=== PATIENT | female | born 1965 | race Caucasian/White ===

== ENCOUNTER 2019-03-03 23:37 | Emergency (ER) | payer OTHER ==
[~2019-03-03] VITALS: Ht 167.6 cm; Wt 75.0 kg
[2019-03-03 23:40] VITALS: BP 156/102
[2019-03-04] MEDS ORDERED: ketorolac tromethamine 15mg/ml inj. IM ONE (00:20)
[2019-03-04] MEDS ORDERED: LIDO700A32 TOP (00:33)
[2019-03-04] MEDS ORDERED: NICO-687 TOP (00:33)
[2019-03-04] MEDS ORDERED: LIDOcaine 5% patch TP ONE (00:50)
[2019-03-04] MEDS ORDERED: LIDOcaine 5% patch TP SCH (08:00)
== END 2019-03-04 01:06 | disposition home or self-care (01) ==
LOC: ER 23:37
DX: R07.89 Other chest pain (principal); F17.200 Nicotine dependence, unspecified, uncomplicated; G89.29 Other chronic pain
CPT/HCPCS: 96372; 99284; J1885

== ENCOUNTER 2024-06-28 10:59 | Day surgery (SDC) | payer MEDICAID ==
[~2024-06-28] VITALS: Ht 167.6 cm; Wt 71.8 kg
[~2024-06-28 10:59] MED LIST: BUPR-72 PO; IBUP200C5 PO; LIDO1ADH58; NAPR-996 PO; OMEP40CA21 PO; POLY510P31 PO; SEMA1.7P; TRIA15CR61
[2024-06-28 11:26] VITALS: BP 152/103; PULSE 78; RESP 16
[2024-06-28] MEDS ORDERED: midazolam 1 mg/ML 2ml injection ONE (12:05)
[2024-06-28] MEDS ORDERED: fentaNYL/PF 50MCG/1 ML 2ML syringe ONE (12:05)
[2024-06-28] MEDS ORDERED: simethicone 40mg/0.6ml oral drops 30ml ONE (12:07)
[2024-06-28] MEDS ORDERED: propofol inj 20 ML IV ONE ×2 (12:14→12:37)
[2024-06-28 12:50] VITALS: BP 94/52; PULSE 65; RESP 14; O2SAT 100
[2024-06-28 13:00] VITALS: BP 93/56; PULSE 68; RESP 14; O2SAT 100
[2024-06-28 13:10] VITALS: BP_SYST 116; BP_SYST 96; BP_DIAS 55; BP_DIAS 75; PULSE 61; PULSE 66; RESP 13; RESP 18; O2SAT 100; O2SAT 97
== END 2024-06-28 13:30 | disposition home or self-care (01) ==
LOC: GI LAB 10:59
PROVIDERS: ATTEND Internal Medicine Gastroenterology
DX: Z12.11 Encounter for screening for malignant neoplasm of colon (principal); K21.00 Gastro-esophageal reflux disease with esophagitis, without bleeding; D12.5 Benign neoplasm of sigmoid colon; D12.3 Benign neoplasm of transverse colon; K29.50 Unspecified chronic gastritis without bleeding; K57.30 Diverticulosis of large intestine without perforation or abscess without bleeding; K30 Functional dyspepsia; J43.9 Emphysema, unspecified
CPT/HCPCS: 43239; 45385; J2250; J2704; J3010; J7030; Z7512; 45380; A4618; A4620; C1889